=== PATIENT | male | born 1945 | race Caucasian/White ===

== ENCOUNTER → 2024-02-14 15:09 | Outpatient (REF) | payer OTHER, SELFPAY | LOC: PAVMRI 15:09 | PROVIDERS: ATTENDING PHYSICIAN Physical Medicine & Rehabilitation; FAMILY PHYSICIAN Family Medicine | DX: M54.59 Other low back pain (principal); M48.062 Spinal stenosis, lumbar region with neurogenic claudication; M47.816 Spondylosis without myelopathy or radiculopathy, lumbar region | CPT/HCPCS: 72148 ==

== ENCOUNTER → 2024-08-02 10:28 | Outpatient (REF) | payer OTHER, SELFPAY | LOC: RAD 10:28 | PROVIDERS: ATTENDING PHYSICIAN Specialist; FAMILY PHYSICIAN Family Medicine | DX: G30.1 Alzheimer's disease with late onset (principal) | CPT/HCPCS: 70450 ==

== ENCOUNTER 2025-02-23 08:47 | Inpatient (IN) | payer OTHER, SELFPAY ==
--- NOTE | 2025-01-22 14:17 | CM ---
Addendum entered by Carole Solitario RN 02/24/25 11:09:
CM met with patient in room. Patient is agreeable to [facility]. IMM signed.
CM sent referral to [facility] Admission RN.
PLAN: Home with [facility].
Original Note:
Demographics: confirmed
Living situation: lives with , who participated in IA since patient has dementia; son lives with patient and but is unable to assist
Support Person Post Operatively:
History of
VN: none
SNF: none
Outpatient: N/A
Has patient purchased required equipment: two walkers, hip kit, ice pack, raised toilet seat
PCP: [facility]
Pharmacy: [facility]
Post Operative Discharge Plan: Patient has moderate dementia and reports multiple falls. Patient would be agreeable to placement and states she has been to [facility] and would be agreeable. LETTY updated orthopedic PA with discharge
planning concerns due to patient's dementia and ambulatory dysfunction.
[2025-02-11 11:33] LABS: Hematocrit 45.0 % (39.0-52.0); Hemoglobin 15.4 g/dL (13.0-18.0); Mean Corp Hgb Conc. 34.2 g/dL (33.0-37.0); Mean Corpuscular Volume 93.8 fL (80.0-94.0); Platelet Count 232 10^3/uL (130-400); Red Cell Dist. Width 12.2 % (11.5-14.5)
[2025-02-11 11:53] LABS: ALT (SGPT) 34 U/L (0-50); AST (SGOT) 30 U/L (17-59); Albumin 4.8 g/dl (3.5-5.0); Alkaline Phosphatase 61 U/L (38-126); Blood Urea Nitrogen 23 mg/dl (9-20); Calcium 9.7 mg/dl (8.4-10.2); Carbon Dioxide 25 mmol/L (22-30); Chloride 104 mmol/L (98-107); Glucose 198 mg/dl (70-99); Potassium 4.7 mmol/L (3.5-5.1); Sodium 139 mmol/L (135-145); Total Protein 7.4 g/dl (6.3-8.2); eGFR > 60.00
[2025-02-11 11:58] LABS: Glycohemoglobin (HgbA1c) 7.3 % (4.0-5.6)
[2025-02-11 14:21] VITALS: BMI 32.8
[2025-02-12 08:40] VITALS: BMI 32.8
[2025-02-23] VITALS (11 sets, daily range): BP systolic 114–177; BP diastolic 59–76; PULSE 54; O2SAT 98; BMI 32.8
[2025-02-23 09:13] LABS: Glucose - Point of Care 174 mg/dl (70-99)
[2025-02-23] MEDS: CELEBREX 200 MG PO (09:25)
[2025-02-23] MEDS: NORMOSOL-R/PLASMALYTE-A 1000 IV ×2 (09:26→16:51)
[2025-02-23] MEDS: TYLENOL 650 MG PO ×3 (09:26→20:33)
[2025-02-23] MEDS: VANCOCIN 530 MG IV (09:41)
--- NOTE | 2025-02-23 09:41 | W.PN.ORTHO ---
Today's Communication / Plan
-
d/c when stable
Assessment
.
Assessment:
CAD
Hx p/o hypotension
Hx p/o V-tach
-IVF + Midodrine
-minimize opioid-Ultram
-continue BB uninterrupted
-tele
Ambulatory dysfunction
-fall precautions
iBS
hx bowel obstruction
-add MOM to bowel regimen
-adequate fluids
BPH-add Flomax-monitor void
DM
-add SSI and low dose long actingcoverage
-Cefadroxil ppx OP
MRSA +
-IV Vanco
-continue Mupirocin x 21d bid
Plan
.
Surgery / Date: L DARON Najera02/23/25
DVT Prophylaxis: Aspirin
Activity:
Out of bed.
PT/OT
Vital Signs and Labs
.
Vital Signs and Labs:
Lab Results
02/11/25 10:27
02/11/25 10:27
Temp Pulse Resp BP Pulse Ox
97.3 F 46 16 177/76 98
02/23/25 08:53 02/23/25 08:53 02/23/25 08:53 02/23/25 08:53 02/23/25 08:53
--- NOTE | 2025-02-23 09:55 | W.DS.TRANS ---
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
-
Discharge Instructions:
Sleep Apnea Risk Intermediate
Discharge Diagnosis/Procedures L knee OA s/p L TKA w/ Dr Najera 02/23/25
Diet Diabetic, Carb Controlled
Additional Diets Adequate hydration, minimize opioids, and wear
TEDS to prevent low blood pressure/dizziness
post-surgery.
Activity With Walker,With assistance
Driving Restrictions Not until seen by your Dr
Bathing Restrictions OK to Shower
Other Services PT,VN,OT
Wound Care Dressing to be removed 1 week post-surgery.
Tamar to be removed at 2 week follow-up with
surgeon's office.
Instructions:
Stand-Alone Forms: Total Hip/Knee Replacement D/C
Changes to Home Medications: Yes
Discharge Medications:
DC Medications w/original date entered in [employer]
simvastatin 40 mg tablet 40 mg PO DAILY 09/27/07
glimepiride 4 mg tablet 4 mg PO DAILY 11/19/17
omeprazole 20 mg capsule,delayed release 20 mg PO DAILY 11/19/17
atenolol 50 mg tablet 50 mg PO DAILY 02/10/25
bupropion HCl 150 mg tablet,12 hr sustained-release 150 mg PO DAILY 02/10/25
cyanocobalamin (vitamin B-12) 500 mcg tablet 500 mcg PO DAILY 02/10/25
empagliflozin 10 mg tablet (Jardiance) 10 mg PO DAILY 02/10/25
gabapentin 300 mg capsule 300 mg PO HS 02/10/25
metformin 500 mg tablet,extended release 24hr (osmotic) 2,000 mg PO QPM 02/10/25
multivitamin 1 tab PO DAILY 02/10/25
Held on 02/23/25. Instructions: Resume on 03/03/25.
sertraline 50 mg tablet 50 mg PO HS 02/10/25
sertraline 50 mg tablet 100 mg PO DAILY 02/10/25
cholecalciferol (vitamin D3) 10 mcg (400 unit) tablet 10 mcg PO DAILY 02/11/25
mupirocin 2 % topical ointment 1 applic intranasal BID #1 tube 02/11/25
cefadroxil 500 mg capsule 500 mg PO BID #14 caps 02/18/25
meloxicam 15 mg tablet 15 mg PO DAILY #14 tabs 02/18/25
ondansetron HCl 4 mg tablet 4 mg PO Q6H PRN nausea and vomiting #30 tabs 02/18/25
tramadol 50 mg tablet 50 - 100 mg (1 - 2 x 50 mg) PO Q6H PRN moderate-severe pain #30 tabs 02/18/25
Saccharomyces boulardii 250 mg capsule (Florastor) 250 mg PO BID #1 cap 02/23/25
acetaminophen 500 mg capsule 1,000 mg (2 x 500 mg) PO QID #0 caps 02/23/25
aspirin 325 mg tablet 325 mg PO DAILY Blood clot prevention/tx #0 tabs 02/23/25
docusate sodium 100 mg capsule (Colace) 100 mg PO BID stool softner #1 cap 02/23/25
magnesium hydroxide 400 mg/5 mL oral suspension (Milk of Magnesia) 30 ml PO HS constipation #1 mL 02/23/25
sennosides 8.6 mg tablet (Senokot) 17.2 mg (2 x 8.6 mg) PO BID laxative #2 tabs 02/23/25
Home Medication Changes
mupirocin 2 % topical ointment 1 applic intranasal BID #1 tube 02/11/25
cefadroxil 500 mg capsule 500 mg PO BID #14 caps 02/18/25
meloxicam 15 mg tablet 15 mg PO DAILY #14 tabs 02/18/25
ondansetron HCl 4 mg tablet 4 mg PO Q6H PRN nausea and vomiting #30 tabs 02/18/25
tramadol 50 mg tablet 50 - 100 mg (1 - 2 x 50 mg) PO Q6H PRN moderate-severe pain #30 tabs 02/18/25
Saccharomyces boulardii 250 mg capsule (Florastor) 250 mg PO BID #1 cap 02/23/25
acetaminophen 500 mg capsule 1,000 mg (2 x 500 mg) PO QID #0 caps 02/23/25
aspirin 325 mg tablet 325 mg PO DAILY Blood clot prevention/tx #0 tabs 02/23/25
docusate sodium 100 mg capsule (Colace) 100 mg PO BID stool softner #1 cap 02/23/25
magnesium hydroxide 400 mg/5 mL oral suspension (Milk of Magnesia) 30 ml PO HS constipation #1 mL 02/23/25
sennosides 8.6 mg tablet (Senokot) 17.2 mg (2 x 8.6 mg) PO BID laxative #2 tabs 02/23/25
Pending Results: No
[2025-02-23 10:57] LABS: Glucose - Point of Care 155 mg/dl (70-99)
[2025-02-23 13:04] LABS: Glucose - Point of Care 138 mg/dl (70-99)
[2025-02-23] MEDS: ULTRAM 50 MG PO (13:40)
--- NOTE | 2025-02-23 14:20 | PTCARENOTE ---
Patient admitted from [facility] post total left knee arthroplasty.The patient rates his pain at a 1 out of 10.Neurovascular assessment is within normal limits and ongoing.The left knee dressing is intact without drainage.The patient is in his bed with
the call aleman in place.
[2025-02-23] MEDS: NOVOLOG FLEXPEN-MODERATE RESISTANCE SC ×2 (16:42→18:38)
[2025-02-23] MEDS: FLOMAX 0.4 MG PO (16:51)
[2025-02-23] MEDS: FARXIGA 10 MG PO (16:51)
[2025-02-23] MEDS: WELLBUTRIN SR (12 hour sustained release) 150 MG PO (16:52)
[2025-02-23] MEDS: AMARYL 4 MG PO (16:52)
[2025-02-23 18:16] LABS: Glucose - Point of Care 220 mg/dl (70-99)
[2025-02-23] MEDS: LANTUS 0.05 UNITS SC (18:34)
[2025-02-23] MEDS: ASPIRIN 325 MG PO (18:35)
[2025-02-23] MEDS: GLUCOPHAGE XR EXTENDED RELEASE 2000 MG PO (18:35)
[2025-02-23] MEDS: LIPITOR 20 MG PO (18:36)
[2025-02-23] MEDS: ANCEF 5 IV (18:40)
[2025-02-23] MEDS: DECADRON 4 MG IV (20:33)
[2025-02-23] MEDS: COLACE 100 MG PO (20:33)
[2025-02-23] MEDS: BACTROBAN 2% OINTMENT 1 APPLIC NASAL (20:33)
[2025-02-23] MEDS: SENOKOT 17.2 MG PO (20:33)
[2025-02-23 21:38] LABS: Glucose - Point of Care 223 mg/dl (70-99)
[2025-02-23] MEDS: VANCOCIN 200 IV (22:12)
[2025-02-23] MEDS: ZOLOFT 50 MG PO (22:13)
[2025-02-23] MEDS: TORADOL 15 MG IV (22:13)
[2025-02-23] MEDS: NEURONTIN 300 MG PO (22:13)
[2025-02-23] MEDS: PEPCID 40 MG PO (22:13)
[2025-02-24] MEDS: TYLENOL PO ×2 (00:29→04:55)
[2025-02-24] MEDS: ANCEF 5 IV (02:02)
[2025-02-24] MEDS: ZOFRAN 4 MG IV ×2 (02:02→08:26)
[2025-02-24 03:05] VITALS: BP 144/69
[2025-02-24 07:50] VITALS: BP 139/56
[2025-02-24 07:52] LABS: Glucose - Point of Care 176 mg/dl (70-99)
[2025-02-24] MEDS: ULTRAM 50 MG PO (08:24)
[2025-02-24] MEDS: CELEBREX 200 MG PO (08:25)
[2025-02-24] MEDS: SENOKOT 17.2 MG PO (08:25)
[2025-02-24] MEDS: WELLBUTRIN SR (12 hour sustained release) 150 MG PO (08:25)
[2025-02-24] MEDS: FARXIGA 10 MG PO (08:25)
[2025-02-24] MEDS: AMARYL 4 MG PO (08:25)
[2025-02-24] MEDS: ASPIRIN 325 MG PO (08:26)
[2025-02-24] MEDS: COLACE 100 MG PO (08:26)
[2025-02-24] MEDS: TYLENOL 650 MG PO (08:26)
[2025-02-24] MEDS: FLOMAX 0.4 MG PO (08:26)
[2025-02-24] MEDS: LANTUS 0.05 UNITS SC (08:27)
[2025-02-24] MEDS: DECADRON 4 MG IV (08:27)
[2025-02-24] MEDS: TORADOL 15 MG IV (08:27)
[2025-02-24] MEDS: BACTROBAN 2% OINTMENT 1 APPLIC NASAL (08:27)
[2025-02-24] MEDS: NOVOLOG FLEXPEN-MODERATE RESISTANCE 1 UNITS SC (08:32)
[2025-02-24 10:19] VITALS: BP 124/62; PULSE 73; O2SAT 97
[2025-02-24 11:22] VITALS: BP 115/68; PULSE 71; O2SAT 96
[2025-02-24 11:30] VITALS: BP 108/69
--- NOTE | 2025-02-24 12:02 | VNURNOTE ---
Home Health Liaison met with patient and spouse at bedside to discuss [facility] nurse/therapy, visits, schedule and homebound status. Patient is agreeable and understands that visits at home will be 2-3 x per week to assess and teach medical
management.
Patient is aware that [facility] will contact them for start of care in 1-2 days after discharge from . Provided contact number for [facility].
[facility] referral completed in [facility].
--- NOTE | 2025-02-24 12:38 | W.PN.ORTHO ---
Today's Communication / Plan
-
d/c
Assessment
.
Distal Motor Intact: Yes
Dressing:
Clean, dry and intact.
Assessment:
CAD
Hx p/o hypotension
Hx p/o V-tach
-IVF + Midodrine
-minimize opioid-Ultram
-continue BB uninterrupted
-stable on tele
Ambulatory dysfunction
-fall precautions
iBS
hx bowel obstruction
-add MOM to bowel regimen
-adequate fluids
BPH-add Flomax-voiding well
DM
-add SSI and low dose long acting coverage
-Cefadroxil ppx OP
-sugars stable POD#1
MRSA +
-IV Vanco
-continue Mupirocin x 21d bid
Plan
.
Surgery / Date: L TKA Dr Najera02/23/25
DVT Prophylaxis: Aspirin
Activity:
Out of bed.
PT/OT
Discharge Plan: Home w/ VN
Subjective
.
.:
Patient resting comfortably.
Vital Signs and Labs
.
Vital Signs and Labs:
Lab Results
02/11/25 10:27
02/11/25 10:27
Temp Pulse Resp BP Pulse Ox
98.7 F 106 18 108/69 94
02/24/25 11:30 02/24/25 11:30 02/24/25 11:30 02/24/25 11:30 02/24/25 11:30
Non-invasive Hgb result: 13.4
Physical Exam
-
HEENT: No pallor, cyanosis, or jaundice. Throat clear.
NECK: Supple. No JVD.
RESPIRATORY: Lungs clear to auscultation.
CVS: S1, S2 normal. RRR.� No murmur, rub or gallop.
ABDOMEN: Soft, non-tender. No distension. BS+/normal.
EXTREMITIES: strength equal, no calf pain with palpation
REGRADER: AOx3. No focal deficits. 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
== END 2025-02-24 12:55 | disposition home health service (06) | DRG 470 ==
LOC: 2 SOUTH 08:47
PROVIDERS: ADMITTING PHYSICIAN Specialist; FAMILY PHYSICIAN Family Medicine
PROC: 0SRD0J9 Replacement of Left Knee Joint with Synthetic Substitute, Cemented, Open Approach (ICD-10-PCS; 2025-02-23)
DX: M17.12 Unilateral primary osteoarthritis, left knee (principal); G45.9 Transient cerebral ischemic attack, unspecified; I47.20 Ventricular tachycardia, unspecified; E66.9 Obesity, unspecified; Z68.32 Body mass index [BMI] 32.0-32.9, adult; I10 Essential (primary) hypertension; E78.5 Hyperlipidemia, unspecified; I25.10 Atherosclerotic heart disease of native coronary artery without angina pectoris; E11.40 Type 2 diabetes mellitus with diabetic neuropathy, unspecified; F32.A Depression, unspecified; K21.9 Gastro-esophageal reflux disease without esophagitis; F03.A0 Unspecified dementia, mild, without behavioral disturbance, psychotic disturbance, mood disturbance, and anxiety; G47.00 Insomnia, unspecified; G89.4 Chronic pain syndrome; H91.93 Unspecified hearing loss, bilateral; K58.9 Irritable bowel syndrome, unspecified; I95.9 Hypotension, unspecified; N40.1 Benign prostatic hyperplasia with lower urinary tract symptoms; N39.498 Other specified urinary incontinence; M51.369 Other intervertebral disc degeneration, lumbar region without mention of lumbar back pain or lower extremity pain; M48.061 Spinal stenosis, lumbar region without neurogenic claudication; Z86.73 Personal history of transient ischemic attack (TIA), and cerebral infarction without residual deficits; Z87.891 Personal history of nicotine dependence; Z22.322 Carrier or suspected carrier of Methicillin resistant Staphylococcus aureus; Z79.899 Other long term (current) drug therapy
CPT/HCPCS: 36415; 73560; 80053; 82962; 83036; 85027; 87070; 87147; 93005; 97110; 97116; 97163; 97167; 97530; 97535; C1713; C1776